=== PATIENT | male | born 1940 | race Caucasian/White ===

== ENCOUNTER 2016-11-03 09:18 | Emergency (ER) | payer MEDICARE ==
[~2016-11-03] VITALS: Ht 182.9 cm; Wt 94.0 kg
[~2016-11-03 09:18] MED LIST: ASPI81TA82 PO; LEVO100T4 PO; METO25 PO; MIRA1TAB PO; PRAM1TAB PO; ROPI2TAB PO; TAMS0.4C67 PO; ZOCO40TA PO
[2016-11-03 09:30] VITALS: BP 162/93; PULSE 61; RESP 18; TEMP 97.9; O2SAT 97
[2016-11-03] MEDS ORDERED: VITATAB43 PO (09:43)
[2016-11-03] MEDS ORDERED: ZOCO40TA PO (09:43)
[2016-11-03] MEDS ORDERED: TAMS0.4C4 PO (09:43)
[2016-11-03] MEDS ORDERED: ASPI81CH CHEW (09:43)
[2016-11-03] MEDS ORDERED: LEVO100T5 PO (09:43)
[2016-11-03] MEDS ORDERED: METO25TA3 PO (09:43)
[2016-11-03 10:08] VITALS: O2SAT 96
[2016-11-03 10:15] LABS: AUTOMATED NEUTROPHIL # 5.6 TH/MM3 (1.8-7.7); BASOPHIL % 0.6 % (0.0-2.0); EOSINOPHIL % 0.3 % (0.0-4.0); HEMATOCRIT 48.8 % (39.0-51.0); HEMO FLAGS DIFF FINAL; LYMPH % 14.4 % (9.0-44.0); LYMPHOCYTE # 1.1 TH/MM3 (1.0-4.8); MEAN CELL VOLUME 92.1 FL (80.0-100.0); MEAN CORPUSCULAR HEMOGLOBIN 30.2 PG (27.0-34.0); MEAN CORPUSCULAR HGB CONC 32.8 % (32.0-36.0); MONO % 9.5 % (0.0-8.0); NEUT % 75.2 % (16.0-70.0); PLATELET COUNT 201 TH/MM3 (150-450); RED CELL DISTRIBUTION WIDTH 12.6 % (11.6-17.2); WHITE BLOOD COUNT 7.4 TH/MM3 (4.0-11.0)
[2016-11-03] MEDS ORDERED: SODIUM CHLORIDE 0.9% FLUSH 10 ML FLUSH IV FLUSH PRN (10:15)
[2016-11-03 10:18] LABS: CHLORIDE 110 MEQ/L (98-107); POTASSIUM 4.4 MEQ/L (3.5-5.1); SODIUM (NA) 144 MEQ/L (136-145)
[2016-11-03 10:22] LABS: ANION GAP 8 MEQ/L (5-15); BICARBONATE 25.8 MEQ/L (21.0-32.0); BLOOD UREA NITROGEN 21 MG/DL (7-18)
[2016-11-03 10:23] VITALS: BP 145/84; PULSE 62; RESP 18; O2SAT 96
[2016-11-03 10:23] LABS: APTT (PATIENT) 27.4 SEC (24.3-30.1); PROTHROMBIN TIME - PATIENT 11.5 SEC (9.8-11.6)
[2016-11-03 10:25] LABS: ALT (GPT) 23 U/L (12-78); AST (GOT) 16 U/L (15-37); GLOMERULAR FILTRATION RATE 54 ML/MIN (>89)
[2016-11-03 10:27] LABS: TOTAL BILIRUBIN ADULT 2.2 MG/DL (0.2-1.0)
[2016-11-03 10:28] LABS: ALKALINE PHOSPHATASE 63 U/L (45-117)
--- NOTE | 2016-11-03 10:51 | PD ---
HPI Chief Complaint: Flank/Kidney Pain Time Seen by Provider: 09:55 Travel History International Travel<30 days: No Contact w/Intl Traveler<30days: No Traveled to known affect area: No History of Present Illness HPI 76-year-old male complains of left side abdominal pain. Patient states the pain started this morning. Patient states the pain cramping pain constant pain localized to the left side abdomen. Patient denies any pain radiation. Patient denies any nausea vomiting diarrhea. Patient denies any dysuria or frequency. Patient denies any fever chills. Patient has history of hypertension, dyslipidemia, hypothyroidism, Parkinson disease and sleep apnea. Patient has history of CAD status post aortic valve replacement, stent placement. Patient on aspirin 81 mg twice a day. PFSH Past Medical History Hx Anticoagulant Therapy: Yes (ASA 81MG BID) Cardiac Catheterization: Yes Cardiovascular Problems: Yes (HTN) High Cholesterol: Yes Diminished Hearing: No Hypertension: Yes Parkinson's Disease: Yes Sleep Apnea: Yes Thyroid Disease: Yes Past Surgical History Cardiac Surgery: Yes (OPEN HEART, STENTS) Coronary Stent: Yes Eye Surgery: Yes Valve Replacement: Yes (AORTIC VALVE REPLACEMENT) Other Surgery: Yes (TOE RECONSTRUCTION) Social History Alcohol Use: No Tobacco Use: No Substance Use: No Allergies-Medications (Allergen,Severity, Reaction): Coded Allergies: No Known Allergies (Verified , 11/03/16) Reported Meds & Prescriptions Reported Meds & Active Scripts Active Reported Vitamin N86-Kftpb Acid (Cobalamine Combinations) 500-400 Mcg Tab 1 Tab PO DAILY Tamsulosin (Tamsulosin HCl) 0.4 Mg Cap 0.4 Mg PO HS Aspirin 81 Mg Chew 81 Mg CHEW BID Levothyroxine (Levothyroxine Sodium) 100 Mcg Tab 100 Mcg PO DAILY Zocor (Simvastatin) 40 Mg Tab 40 Mg PO DAILY Metoprolol Tartrate 25 Mg Tab 12.5 Mg PO BID Ropinirole 2 Mg Tab 2 Mg PO HS Pramipexole (Pramipexole Dihydrochloride) 1 Mg Tab 1 Mg PO QID Review of Systems General / Constitutional: No: Fever Eyes: No: Visual changes HENT: No: Headaches Cardiovascular: No: Chest Pain or Discomfort Respiratory: No: Shortness of Breath Gastrointestinal: Positive: Abdominal Pain Genitourinary: No: Dysuria Musculoskeletal: No: Pain Skin: No Rash Neurologic: No: Weakness Psychiatric: No: Depression Endocrine: No: Polydipsia Hematologic/Lymphatic: No: Easy Bruising Physical Exam Narrative GENERAL: Well-nourished, well-developed patient. SKIN: Focused skin assessment warm/dry. HEAD: Normocephalic. EYES: No scleral icterus. No injection or drainage. NECK: Supple, trachea midline. No JVD or lymphadenopathy. CARDIOVASCULAR: Regular rate and rhythm without murmurs, gallops, or rubs. RESPIRATORY: Breath sounds equal bilaterally. No accessory muscle use. GASTROINTESTINAL: Abdomen soft, nondistended. Patient has moderate tenderness on palpation left mid abdomen. No rebound tenderness. No mass. MUSCULOSKELETAL: No cyanosis, or edema. BACK: Nontender without obvious deformity. No CVA tenderness. Neurologic exam normal. Data Data Last Documented VS Vital Signs Date Time Temp Pulse Resp B/P Pulse Ox O2 Delivery O2 Flow Rate FiO2 11/03/16 11:18 72 20 185/95 95 11/03/16 09:30 97.9 Orders Complete Blood Count With Diff (11/03/16 10:01) Comprehensive Metabolic Panel (11/03/16 10:01) Lipase (11/03/16 10:01) Prothrombin Time / Inr (Pt) (11/03/16 10:01) Act Partial Throm Time (Ptt) (11/03/16 10:01) Urinalysis - C+S If Indicated (11/03/16 10:01) Ct Abd/Pel W Iv Contrast(Rout) (11/03/16 10:01) Iv Access Insert/Monitor (11/03/16 10:01) Ecg Monitoring (11/03/16 10:01) Oximetry (11/03/16 10:01) Sodium Chloride 0.9% Flush (Ns Flush) (11/03/16 10:15) Iohexol 350 Inj (Omnipaque 350 Inj) (11/03/16 10:52) Labs Laboratory Tests Test 11/03/16 11/03/16 10:00 11:15 White Blood Count 7.4 TH/MM3 Red Blood Count 5.30 MIL/MM3 Hemoglobin 16.0 GM/DL Hematocrit 48.8 % Mean Corpuscular Volume 92.1 FL Mean Corpuscular Hemoglobin 30.2 PG Mean Corpuscular Hemoglobin 32.8 % Concent Red Cell Distribution Width 12.6 % Platelet Count 201 TH/MM3 Mean Platelet Volume 8.7 FL Neutrophils (%) (Auto) 75.2 % Lymphocytes (%) (Auto) 14.4 % Monocytes (%) (Auto) 9.5 % Eosinophils (%) (Auto) 0.3 % Basophils (%) (Auto) 0.6 % Neutrophils # (Auto) 5.6 TH/MM3 Lymphocytes # (Auto) 1.1 TH/MM3 Monocytes # (Auto) 0.7 TH/MM3 Eosinophils # (Auto) 0.0 TH/MM3 Basophils # (Auto) 0.0 TH/MM3 CBC Comment DIFF FINAL Differential Comment Prothrombin Time 11.5 SEC Prothromb Time International 1.0 RATIO Ratio Activated Partial 27.4 SEC Thromboplast Time Sodium Level 144 MEQ/L Potassium Level 4.4 MEQ/L Chloride Level 110 MEQ/L Carbon Dioxide Level 25.8 MEQ/L Anion Gap 8 MEQ/L Blood Urea Nitrogen 21 MG/DL Creatinine 1.30 MG/DL Estimat Glomerular Filtration 54 ML/MIN Rate Random Glucose 119 MG/DL Calcium Level 9.3 MG/DL Total Bilirubin 2.2 MG/DL Aspartate Amino Transf 16 U/L (AST/SGOT) Alanine Aminotransferase 23 U/L (ALT/SGPT) Alkaline Phosphatase 63 U/L Total Protein 7.0 GM/DL Albumin 3.8 GM/DL Lipase 93 U/L Urine Collection Type CLEAN CATCH Urine Color YELLOW Urine Turbidity CLEAR Urine pH 5.0 Urine Specific [place] 1.015 Urine Protein NEG mg/dL Urine Glucose (UA) NEG mg/dL Urine Ketones NEG mg/dL Urine Occult Blood LARGE Urine Nitrite NEG Urine Bilirubin NEG Urine Leukocyte Esterase NEG Urine RBC 50-99 /hpf Urine WBC 3-5 /hpf Urine Squamous Epithelial 0-5 /hpf Cells Microscopic Urinalysis Comment CULT NOT INDICATED Urine Collection Time 11:154 [facility] Medical Decision Making Medical Screen Exam Complete: Yes Emergency Medical Condition: Yes Interpretation(s) Last Impressions Abdomen/Pelvis CT 11/03/16 1001 Signed Impressions: Service Date/Time: October 10:42 - CONCLUSION: 1. 3 mm distal left ureteral calculus with mild left hydroureter. 2. Appendicolith. Appendix otherwise within normal limits. 3. Colonic diverticulosis but no evidence of acute diverticulitis. 4. Osteoarthritic findings of the hips and prominent degenerative findings of the lumbar spine. 5. Diffuse atherosclerotic disease. Jose Monique MD 11:57 AM. CBC within normal limit. CMP within normal limit. BUN 21. UA positive for RBC. Differential Diagnosis Differential diagnosis including musculoskeletal, colitis, pyelonephritis, nephrolithiasis. Narrative Course 76-year-old male with left-sided abdominal pain. Diagnosis Primary Impression: Nephrolithiasis Patient Instructions: General Instructions Additional Instructions: Take medication as needed for pain. Follow-up with urologist. Return if intractable pain, fever, persistent vomiting. Med/Other Pt SpecificInfo: Prescription(s) given Scripts Ondansetron Odt (Zofran Odt)4 Mg Tab4 Mg SL Q6HR PRN (Nausea/Vomiting) #10 TAB Ref 0 Prov:Clifton Wang MD 11/03/16 Hydrocodone-Acetaminophen ([place])5-325 mg Tab1 Tab PO Q6H PRN (PAIN) #30 TAB Prov:Clifton Wang MD 11/03/16 Disposition: 01 DISCHARGE HOME Condition: Stable Clifton Wang MD Nov 03, 2016 10:51
[2016-11-03] MEDS ORDERED: IOHEXOL 350 MG/ML 10 ML VIAL (for RAD DIAG) IV ONE (10:52)
[2016-11-03 11:18] VITALS: BP 185/95; PULSE 72; RESP 20; O2SAT 95
--- NOTE | 2016-11-03 11:23 | RADHPO ---
EXAM DATE/TIME: 11/03/2016 10:42 [facility] COMPARISON: No previous studies available for comparison. INDICATIONS : Left side abdominal pain. IV CONTRAST: 85 cc Omnipaque 350 (iohexol) IV ORAL CONTRAST: No oral contrast ingested. RADIATION DOSE: 21.42 CTDIvol (mGy) MEDICAL HISTORY : Parkinson's. Hypertension. SURGICAL HISTORY : Coronary artery stent. Aortic valve replacement. ENCOUNTER: Initial ACUITY: 1 day PAIN SCALE: 7/10 LOCATION: Left flank TECHNIQUE: Volumetric scanning of the abdomen and pelvis was performed. Using automated exposure control and ad justment of the mA and/or kV according to patient size, radiation dose was kept as low as reasonably achievable to obtain optimal diagnostic quality images. FINDINGS: LOWER LUNGS: Coronary artery calcifications. Mild atelectasis at the lung bases. LIVER: Homogeneous density without lesion. There is no dilation of the biliary tree. No calcified gallston es. SPLEEN: Normal size without lesion. PANCREAS: Within normal limits. KIDNEYS: 3 mm calculus in the distal left ureter 1.5 cm proximal to the UVJ. Mild left hydroureter and mild le ft periureteral stranding. No evidence of hydronephrosis. Right kidney within normal limits. ADRENAL GLANDS: Within normal limits. VASCULAR: Diffuse aortic calcification. Aortic diameter are within normal limits. BOWEL/MESENTERY: Small hiatal hernia. No evidence of bowel dilatation. Scattered colonic diverticula. No evidence of a cute diverticulitis. 4 mm appendicolith is noted. Appendix otherwise within normal limits. ABDOMINAL WALL: Within normal limits. RETROPERITONEUM: There is no lymphadenopathy. BLADDER: No wall thickening or mass. REPRODUCTIVE: Prostate is enlarged measuring 5.5 cm in transverse dimension. INGUINAL: There is no lymphadenopathy or hernia. MUSCULOSKELETAL: Osteoarthritic findings of the hips and sacroiliac joints. Prominent degenerative findings of the lum bar spine. CONCLUSION: 1. 3 mm distal left ureteral calculus with mild left hydroureter. 2. Appendicolith. Appendix otherwise within normal limits. 3. Colonic diverticulosis but no evidence of acute diverticulitis. 4. Osteoarthritic findings of the hips and prominent degenerative findings of the lumbar spine. 5. Diffuse atherosclerotic disease. Jose Monique MD on November 03, 2016 at 11:13 Board Certified Radiologist. This report was verified electronically.
[2016-11-03 11:27] LABS: BLOOD, URINE LARGE (NEG); GLUCOSE,URINE NEG (NEG); KETONE, URINE NEG (NEG); NITRITE,URINE NEG (NEG)
[2016-11-03 11:32] LABS: METHOD OF COLLECTION CLEAN CATCH; URINE COLOR YELLOW (YELLW/STRAW)
[2016-11-03 11:33] LABS: COMMENT (UR) CULT NOT INDICATED; CULTURE IF INDICATED CULT NOT INDICATED; SQUAMOUS EPITHELIAL CELL URINE 0-5 /hpf (0-5)
[2016-11-03] MEDS ORDERED: NORC5TAB PO (12:01)
[2016-11-03] MEDS ORDERED: ZOFR4TAB3 SL (12:01)
== END 2016-11-03 12:22 | disposition home or self-care (01) ==
LOC: PHED 09:18
DX: N20.1 Calculus of ureter (principal); K57.30 Diverticulosis of large intestine without perforation or abscess without bleeding; G20 Parkinson's disease; I10 Essential (primary) hypertension; Z79.82 Long term (current) use of aspirin
CPT/HCPCS: 74177; 80053; 81001; 83690; 85025; 85610; 85730; 99284; Q9967

== ENCOUNTER 2016-12-16 01:55 | Emergency (ER) | payer MEDICARE ==
[~2016-12-16] VITALS: Ht 180.3 cm; Wt 90.0 kg
[~2016-12-16 01:55] MED LIST changes: +ASPI81CH CHEW; -ASPI81TA82 PO; -LEVO100T4 PO; +LEVO100T5 PO; -METO25 PO; +METO25TA3 PO; -MIRA1TAB PO; +NORC5TAB PO; +TAMS0.4C4 PO; -TAMS0.4C67 PO; +VITATAB43 PO; +ZOFR4TAB3 SL
[2016-12-16 01:58] VITALS: BP 161/83; PULSE 86; RESP 18; TEMP 98.7; O2SAT 99
[2016-12-16] MEDS ORDERED: GLUC500C5 PO (02:19)
--- NOTE | 2016-12-16 02:32 | PD ---
HPI Chief Complaint: Altered Mental Status Time Seen by Provider: 02:14 Travel History International Travel<30 days: No Contact w/Intl Traveler<30days: No Traveled to known affect area: No History of Present Illness HPI 76-year-old male was brought in by EMS for altered mental status. Patient's reported patient was not responding to her tonight. Patient wearing CPAP at night for sleep apnea. Patient's states that patient had bubbles around the mouth and inside his CPAP. Patient's states that she was shaking patient's tonight without him responding to her. EMS was called. Patient awake and started coming around upon EMS arrival. Patient was transported to ED for evaluation. Patient's states that patient is back to normal baseline in the ED. Patient's states that patient had similar episode like this in July and workup was negative. Patient denies any headache. Patient denies any visual change. Patient denies any chest pain or shortness of breath. Patient denies abdominal pain. Patient denies any focal weakness or numbness of extremity. Patient has history of aortic valve replacement, CAD status post CABG and stents placement. Patient also has history of hypertension, dyslipidemia, hypothyroidism, Parkinson disease. PFSH Past Medical History Hx Anticoagulant Therapy: Yes (ASA 81MG BID) Cardiac Catheterization: Yes Cardiovascular Problems: Yes (HTN) High Cholesterol: Yes Diminished Hearing: No Hypertension: Yes Parkinson's Disease: Yes Sleep Apnea: Yes Thyroid Disease: Yes Influenza Vaccination: No Past Surgical History Cardiac Surgery: Yes (OPEN HEART, STENTS) Coronary Stent: Yes Eye Surgery: Yes Valve Replacement: Yes (AORTIC VALVE REPLACEMENT) Other Surgery: Yes (TOE RECONSTRUCTION) Social History Alcohol Use: No Tobacco Use: No Substance Use: No Allergies-Medications (Allergen,Severity, Reaction): Coded Allergies: No Known Allergies (Verified , 12/16/16) Reported Meds & Prescriptions Reported Meds & Active Scripts Active Zofran Odt (Ondansetron Odt) 4 Mg Tab 4 Mg SL Q6HR PRN [place] (Hydrocodone-Acetaminophen) 5-325 mg Tab 1 Tab PO Q6H PRN Reported Glucosamine (Glucosamine Sulfate) 500 Mg Cap Unknown Dose PO DAILY Vitamin L24-Imdnr Acid (Cobalamine Combinations) 500-400 Mcg Tab 1 Tab PO DAILY Tamsulosin (Tamsulosin HCl) 0.4 Mg Cap 0.4 Mg PO HS Aspirin 81 Mg Chew 81 Mg CHEW BID Levothyroxine (Levothyroxine Sodium) 100 Mcg Tab 100 Mcg PO DAILY Zocor (Simvastatin) 40 Mg Tab 40 Mg PO DAILY Metoprolol Tartrate 25 Mg Tab 12.5 Mg PO BID Ropinirole 2 Mg Tab 2 Mg PO HS Pramipexole (Pramipexole Dihydrochloride) 1 Mg Tab 1 Mg PO QID Review of Systems General / Constitutional: No: Fever Eyes: No: Visual changes HENT: No: Headaches Cardiovascular: No: Chest Pain or Discomfort Respiratory: No: Shortness of Breath Gastrointestinal: No: Abdominal Pain Genitourinary: No: Dysuria Musculoskeletal: No: Pain Skin: No Rash Neurologic: No: Weakness Psychiatric: No: Depression Endocrine: No: Polydipsia Hematologic/Lymphatic: No: Easy Bruising Physical Exam Narrative GENERAL: Well-nourished, well-developed patient. SKIN: Focused skin assessment warm/dry. HEAD: Normocephalic. EYES: No scleral icterus. No injection or drainage. Pupils 2 mm equal reactive. NECK: Supple, trachea midline. No JVD or lymphadenopathy. CARDIOVASCULAR: Regular rate and rhythm without murmurs, gallops, or rubs. RESPIRATORY: Breath sounds equal bilaterally. No accessory muscle use. GASTROINTESTINAL: Abdomen soft, non-tender, nondistended. MUSCULOSKELETAL: No cyanosis, or edema. BACK: Nontender without obvious deformity. No CVA tenderness. Neurologic exam: Patient's awake and alert oriented to name. Patient moves all extremity well. No obvious focal neurological deficit. Data Data Last Documented VS Vital Signs Date Time Temp Pulse Resp B/P Pulse Ox O2 Delivery O2 Flow Rate FiO2 12/16/16 01:58 98.7 86 18 161/83 99 Orders Electrocardiogram (12/16/16 02:12) [facility] Medical Decision Making Medical Screen Exam Complete: Yes Emergency Medical Condition: Yes Differential Diagnosis Differential diagnoses including transient amnesia, TIA, CVAs, electrolyte abnormality, dehydration. Narrative Course 76-year-old male with transient altered mental status. Patient was not responding to his at home. Patient's back to baseline in the ED. Patient had similar episode in the past and workup was negative. I advised patient and his that patient back to baseline now and no need for any workup at this point. Patient's with take patient home. Diagnosis Primary Impression: Altered mental status, unspecified Patient Instructions: General Instructions Additional Instructions: Follow-up with personal physician. Return as needed. Med/Other Pt SpecificInfo: No Change to Meds Disposition: 01 DISCHARGE HOME Condition: Stable Clifton Wang MD December 16, 2016 02:32
--- NOTE | 2016-12-16 08:17 | EKG ---
Date Performed: 12/16/2016 Time Performed: 02:12:15 PTAGE: 76 years EKG: Sinus rhythm SEPTAL MYOCARDIAL INFARCTION Nonspecific T wave changes ABNORMAL ECG INTERPRETATION BASED ON A DEFAU LT AGE OF 40 YEARS NO SIGNIFICANT CHANGE FROM PRIOR ELECTROCARDIOGRAM. PREVIOUS TRACING : 07/22/2016 05.03 DOCTOR: Khang Mancini Interpretating Date/Time 12/16/2016 08:15:43
== END 2016-12-16 03:07 | disposition home or self-care (01) ==
LOC: NEPC 01:55
DX: R41.82 Altered mental status, unspecified (principal); R94.31 Abnormal electrocardiogram [ECG] [EKG]; Z95.2 Presence of prosthetic heart valve; I10 Essential (primary) hypertension; G20 Parkinson's disease; E78.00 Pure hypercholesterolemia, unspecified; E78.5 Hyperlipidemia, unspecified; E03.9 Hypothyroidism, unspecified
CPT/HCPCS: 93005; 99284